=== PATIENT | male | born 1965 | race Caucasian/White ===

== ENCOUNTER → 2017-08-23 | Outpatient (CLI) | payer BC ==
--- NOTE | 2017-08-23 12:29 | PCVCIMAG ---
APPROVED REPORT Study performed: 08/23/2017 11:35:58 EXAM: Comprehensive 2D, Doppler, and color-flow Echocardiogram Patient Location: Echo lab Room #: 3Status: routine BSA: 2.11 HR: 88 bpmBP: 134/86 mmHg Rhythm: NSR Indications Abnormal ECG Dyspnea CAD 2D Dimensions LVEF(%): 73.60 (>50%) IVSd: 9.53 (7-11mm)LVOT Diam: 22.49 (18-24mm) LVDd: 49.47 mm PWd: 7.19 (7-11mm)Ascending Ao: 29.95 (22-36mm) LVDs: 28.34 (25-40mm) Left Atrium: 32.54 (27-40mm) LV Single Plane 4CH: 54.36 % LV Single Plane 2CH: 67.62 %Lopez's LVEF: 60.99 % Biplane EF: 47.6 % Volumes Left Atrial Volume (Systole) Single Plane 4CH: 51.25 mLSingle Plane 2CH: 39.82 mL Biplane LA Volume: 52.00 mLLA ESV Index: 25.00 mL/m2 Aortic Valve AoV Peak Rusty.: 1.43 m/s AO Peak Gr.: 8.22 mmHgLVOT Max P.05 mmHg LVOT Max V: 1.01 m/s DEBORAH Vmax: 2.79 cm2 Mitral Valve E/A Ratio: 1.2 MV Decel. Time: 148.77 ms MV E Max Rusty.: 0.98 m/s MV A Rusty.: 0.84 m/s MV PHT: 43.14 ms IVRT: 65.74 ms TDI E/Lateral E': 8.17E/Medial E': 8.17 Medial E' Rusty.: 0.12 m/s Lateral E' Rusty.: 0.12 m/s Pulmonary Valve PV Peak Rusty.: 1.01 m/sPV Peak Gr.: 4.08 mmHg Pulmonary Vein P Vein S: 0.51 m/sP Vein A: 0.37 m/s P Vein D: 0.39 m/sP Vein A Dur.: 90.0 msec P Vein S/D Ratio: 1.31 Tricuspid Valve TR Peak Rusty.: 2.27 m/s TR Peak Gr.: 20.60 mmHg TV Vmax: 0.67 m/sPA Pressure: 28.00 mmHg Left Ventricle The left ventricle is normal size. There is normal LV segmental wall motion. There is normal left ventricular wall thickness. Left ventricular systolic function is normal. The left ventricular ejection fraction is within the normal range. LVEF is 60-65%. The left ventricular diastolic function is normal. Right Ventricle The right ventricle is normal size. The right ventricular systolic function is normal. Atria The left atrium size is normal. The right atrium size is normal. Aortic Valve The aortic valve is normal in structure. No aortic regurgitation is present. There is no aortic valvular stenosis. Mitral Valve The mitral valve is normal in structure. There is no mitral valve regurgitation noted. No evidence of mitral valve stenosis. Tricuspid Valve The tricuspid valve is normal in structure. There is no tricuspid valve regurgitation noted. Pulmonic Valve The pulmonary valve is normal in structure. There is no pulmonic valvular regurgitation. Great Vessels The aortic root is normal in size. The ascending aorta is normal in size. IVC is normal in size and collapses with >50% inspiration Pericardium There is no pericardial effusion. There is no pleural effusion. <Conclusion> The left ventricle is normal size. Left ventricular systolic function is normal. The left ventricular diastolic function is normal. The right ventricle is normal size. The left atrium size is normal. There is no aortic valvular stenosis. There is no mitral valve regurgitation noted. There is no pericardial effusion.
--- NOTE | 2017-08-23 12:41 | PCVCIMAG ---
APPROVED REPORT Exam: Stress Echocardiogram Indication: Hyperlipidemia, Hypertension, Abnormal Calcium Score Patient Location: Echo lab Stress Nurse: Julissa Enrique RN Status: routine Ht: 5 ft 11 in HR: 98 bpm BP: 122/90 mmHg Rhythm: NSR Procedure The patient underwent an Exercise Stress Test using the Nigel Protocol. Blood pressure, heart rate, and EKG were monitored. An Echocardiogram was performed by machine tool technician instructor in four stages in quad fashion. At peak stress, four selected images were obtained and placed side by side with resting images for comparison. Stress Test Details Stress Test: Exercise stress testing was performed using a Nigel protocol. HR Resting HR: 98 bpmMax Heart Rate (APMHR): 170 bpm Max HR Achieved: 173 bpmTarget HR (85% APMHR): 144 bpm % of APMHR: 101 HR response to stress: Normal HR response to stress BP Resting BP: 122/90 mmHg Max BP: 178/90 mmHg ECG Resting ECG: Sinus Rhythm Stress ECG: Sinus Rhythm ST Change: Non-ischemic Clinical Reason for Termination: Maximal effort Exercise duration: 9 min 23 sec Highest Stage Achieved: Stage 4: 4.2 mph at 16% grade. Exercise capacity: 11.30 METs Overall Exercise Capacity for Age: Normal Pre-Stress Echo The resting Echocardiogram showed normal left ventricular contractility with an estimated Ejection Fraction of about 55-60%. Normal wall motion in all segments on baseline images. Post-Stress Echo The stress Echocardiogram showed normal left ventricular contractility with an estimated Ejection Fraction of about 60-65%. Normal augmentation of wall motion in all segments on post stress images. Clinical No clinical or ECG evidence for ischemia. Conclusion Clinical Response: Non-ischemic Exercise Capacity: Average Stress ECG Response: Non-ischemic Stress Echo Images: Non-ischemic The left ventricle is normal in size and wall thickness in both the rest and stress images. Other Information Study Quality: Good <Conclusion> The left ventricle is normal in size and wall thickness in both the rest and stress images.
== END | disposition home or self-care (01) ==
LOC: PCVCIMAG 10:27
PROVIDERS: ATTEND Internal Medicine Cardiovascular Disease
DX: I25.10 Atherosclerotic heart disease of native coronary artery without angina pectoris (principal); I10 Essential (primary) hypertension; E78.00 Pure hypercholesterolemia, unspecified; K21.9 Gastro-esophageal reflux disease without esophagitis; E83.59 Other disorders of calcium metabolism; R06.00 Dyspnea, unspecified
CPT/HCPCS: 93005; 93306; 93351; G0463